=== PATIENT | male | born 1985 | race African-American/Black ===

== ENCOUNTER 2016-08-29 11:18 | Emergency (ER) | payer OTHER ==
[2016-08-29 11:22] VITALS: BP 122/73
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
--- NOTE | 2016-08-29 11:57 | RAD ---
Three-view left knee radiographs 08/29/2016 Clinical history: Left knee pain after playing basketball with pain and swelling and inability to bear weight. AP, lateral and oblique digital radiographs of the left knee were obtained. No fracture or dislocation left knee is seen. No significant degenerative changes are seen. Impression: No fracture or dislocation of the left knee is seen.
[2016-08-29] MEDS ORDERED: HYDR-971 PO (12:07)
== END 2016-08-29 12:24 | disposition home or self-care (01) ==
LOC: ER 11:18
DX: S89.92XA Unspecified injury of left lower leg, initial encounter (principal); G89.29 Other chronic pain; Z88.6 Allergy status to analgesic agent; X58.XXXA Exposure to other specified factors, initial encounter; Y93.67 Activity, basketball; Y92.89 Other specified places as the place of occurrence of the external cause; Y99.8 Other external cause status
CPT/HCPCS: 73562; 99284-25

== ENCOUNTER 2017-03-06 16:04 | Emergency (ER) | payer OTHER ==
[~2017-03-06] VITALS: Ht 177.8 cm; Wt 68.9 kg
[~2017-03-06 16:04] MED LIST: HYDR-971 PO
[2017-03-06] MEDS ORDERED: TRAM50TA PO (16:16)
[2017-03-06] MEDS ORDERED: AMOX500C PO (16:16)
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
[2017-03-06 16:20] VITALS: BP 148/74
== END 2017-03-06 16:33 | disposition home or self-care (01) ==
LOC: ER 16:04
DX: K08.89 Other specified disorders of teeth and supporting structures (principal); G89.29 Other chronic pain; Z88.6 Allergy status to analgesic agent
CPT/HCPCS: 99283

== ENCOUNTER 2017-04-09 09:40 | Emergency (ER) | payer OTHER ==
[~2017-04-09] VITALS: Ht 177.8 cm; Wt 68.0 kg
[~2017-04-09 09:40] MED LIST changes: +AMOX500C PO; +TRAM50TA PO
[2017-04-09 09:51] VITALS: BP 107/68
[2017-04-09] MEDS ORDERED: metroNIDAZOLE 500 MG TABLET PO ONE (10:45)
[2017-04-09] MEDS ORDERED: AZITHROMYCIN 250 MG TABLET. PO ONE (10:45)
[2017-04-09] MEDS ORDERED: cefTRIAXone IM 250 MG VIAL IM ONE (10:45)
[2017-04-09] MEDS ORDERED: CYCLOBENZAPRINE 10 MG TABLET. PO ONE (10:45)
[2017-04-09 10:52] LABS: BILIRUBIN,URINE NEGATIVE (NEG); GLUCOSE,URINE NEGATIVE (NEG); NITRITE,URINE NEGATIVE (NEG); PH,URINE 6.5; PROTEIN,URINE NEGATIVE (NEG-TRACE)
[2017-04-09 11:05] LABS: BARBITURATES NEG (NEG); BENZODIAZEPINES NEG (NEG); CANNABINOIDS POS (NEG); COCAINE NEG (NEG); METHADONE NEG (NEG); OPIATES NEG (NEG); PHENCYCLIDINE NEG (NEG)
[2017-04-09 11:19] LABS: BACTERIA,URINE 0 /HPF (0-FEW); RBC,URINE 0 /HPF (0-2); WBC,URINE >40 /HPF (0-4)
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
[2017-04-09] MEDS ORDERED: CYCL10TA2 PO (11:58)
[2017-04-09] MEDS ORDERED: DOXY100T PO (11:58)
== END 2017-04-09 12:38 | disposition home or self-care (01) ==
LOC: ER 09:40
DX: Z11.3 Encounter for screening for infections with a predominantly sexual mode of transmission (principal); N30.00 Acute cystitis without hematuria; G89.29 Other chronic pain; Z88.6 Allergy status to analgesic agent; Z91.013 Allergy to seafood
CPT/HCPCS: 80307; 81001; 87491; 87591; 96372; 99284; J0696; Q0144; G0479

== ENCOUNTER 2018-07-12 20:58 | Emergency (ER) | payer OTHER ==
[~2018-07-12] VITALS: Ht 180.3 cm; Wt 71.2 kg
[~2018-07-12 20:58] MED LIST changes: +CYCL10TA2 PO; +DOXY100T PO; +HYDR-3164 PO; -HYDR-971 PO
[2018-07-12 22:30] VITALS: BP 125/75
== END 2018-07-12 23:03 | disposition left against medical advice (07) ==
LOC: ER 20:58
DX: R10.32 Left lower quadrant pain (principal); Z53.21 Procedure and treatment not carried out due to patient leaving prior to being seen by health care provider

== ENCOUNTER 2020-10-10 11:34 | Emergency (ER) | payer MEDICAID ==
[~2020-10-10] VITALS: Ht 175.3 cm; Wt 72.7 kg
[~2020-10-10 11:34] MED LIST changes: +AMOX1TAB61 PO; +PRED50TA PO
[2020-10-10 12:00] VITALS: BP 159/91
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
== END 2020-10-10 12:15 | disposition home or self-care (01) ==
LOC: ER 11:34
DX: S80.861A Insect bite (nonvenomous), right lower leg, initial encounter (principal); J45.909 Unspecified asthma, uncomplicated; F17.200 Nicotine dependence, unspecified, uncomplicated; Z88.6 Allergy status to analgesic agent; W57.XXXA Bitten or stung by nonvenomous insect and other nonvenomous arthropods, initial encounter; Y93.89 Activity, other specified; Y92.89 Other specified places as the place of occurrence of the external cause; Y99.8 Other external cause status
CPT/HCPCS: 99281